=== PATIENT | female | born 1935 | race Caucasian/White ===

== ENCOUNTER 2017-08-04 02:39 | Inpatient (IN) | payer MEDICARE, OTHER ==
[~2017-08-04] VITALS: Ht 162.6 cm; Wt 70.5 kg
[2017-08-04] VITALS (8 sets, daily range): BP systolic 113–179; BP diastolic 56–77; PULSE 56–69; RESP 12–19; TEMP 98.1–98.4; O2SAT 94–99
--- NOTE | 2017-08-04 03:04 | PD ---
HPI Chief Complaint: Neuro Symptoms/ Deficits Time Seen by Provider: 02:53 Travel History International Travel<30 days: No Contact w/Intl Traveler<30days: No Traveled to known affect area: No History of Present Illness HPI 81-year-old female was brought in by EMS for head injury. Patient has history of dementia. Patient lives with her daughter at home. Patient's daughter states that her heart thumping noise in the bathroom tonight and found her mother having seizure on the floor of the bathroom. Patient daughter states that the generalized tonic-clonic seizure. Patient's daughter states that the seizure episode lasted about 2 minutes. Patient's daughter stated the patient bit her tongue. Patient's daughter states that patient normally has confusion however the confusion is worse tonight. Patient denies any problem now. Patient denies any headache. Patient denies any visual change. Patient denies any neck pain. Patient denies any chest pain or shortness of breath. Patient denies abdominal pain. Patient denies any focal weakness or numbness of the extremity. Patient was seen initially at emergency room in [place]. CT scan of the brain shows subarachnoid hemorrhage. Neurosurgeon [place] was contacted. Patient was transferred to [facility] to be admitted to neurosurgeon. [facility] Past Medical History Cancer: Yes Cerebrovascular Accident: Yes (strokes ) Influenza Vaccination: Yes ?: Not Past Surgical History Hysterectomy: Yes Social History Alcohol Use: No Tobacco Use: No Substance Use: No Allergies-Medications (Allergen,Severity, Reaction): Coded Allergies: codeine (Unverified Allergy, Severe, hives, 01/13/17) penicillin G (Unverified Allergy, Severe, 01/13/17) Review of Systems General / Constitutional: No: Fever Eyes: No: Visual changes HENT: No: Headaches Cardiovascular: No: Chest Pain or Discomfort Respiratory: No: Shortness of Breath Gastrointestinal: No: Abdominal Pain Genitourinary: No: Dysuria Musculoskeletal: No: Pain Skin: No Rash Neurologic: No: Weakness Psychiatric: No: Depression Endocrine: No: Polydipsia Hematologic/Lymphatic: No: Easy Bruising Physical Exam Narrative GENERAL: Well-nourished, well-developed patient. SKIN: Focused skin assessment warm/dry. HEAD: Normocephalic. Patient has mild abrasion and mouth subcu swelling right forehead. Patient has small abrasion to the tongue. EYES: No scleral icterus. No injection or drainage. Pupil 1.5 mm equal reactive. NECK: Supple, trachea midline. No JVD or lymphadenopathy. No neck tenderness on palpation. CARDIOVASCULAR: Regular rate and rhythm without murmurs, gallops, or rubs. RESPIRATORY: Breath sounds equal bilaterally. No accessory muscle use. GASTROINTESTINAL: Abdomen soft, non-tender, nondistended. MUSCULOSKELETAL: No cyanosis, or edema. BACK: Nontender without obvious deformity. No CVA tenderness. Neurologic exam: Patient is awake and answer questions and oriented to place and person. Patient moves all extremity well. No obvious focal neurological deficit. Data Data Last Documented VS Vital Signs Date Time Temp Pulse Resp B/P (MAP) Pulse Ox O2 Delivery O2 Flow Rate FiO2 08/04/17 02:48 98.4 64 17 133/62 (85) 97 Orders Orders Electrocardiogram (08/04/17 02:53) Complete Blood Count With Diff (08/04/17 02:53) Comprehensive Metabolic Panel (08/04/17 02:53) Prothrombin Time / Inr (Pt) (08/04/17 02:53) Act Partial Throm Time (Ptt) (08/04/17 02:53) Chest, Single Ap (08/04/17 02:53) Ct Brain W/O Iv Contrast(Rout) (08/04/17 02:53) Iv Access Insert/Monitor (08/04/17 02:53) Ecg Monitoring (08/04/17 02:53) Oximetry (08/04/17 02:53) Admit Order (Ed Use Only) (08/04/17 03:04) [facility] Medical Decision Making Medical Screen Exam Complete: Yes Emergency Medical Condition: Yes Differential Diagnosis Differential diagnosis including subcarinal hemorrhage, head injury, seizure. Narrative Course 81-year-old female with transfer from [facility] in [facility] for intracranial hemorrhage. Patient will be admitted to the neurosurgical service. EEG was ordered. Diagnosis Primary Impression: Subarachnoid hemorrhage Additional Impressions: Forehead abrasion Qualified Codes: S00.81XA - Abrasion of other part of head, initial encounter Seizure Admitting Information Admitting Physician Requests: Admit Fabio Blanco MD Aug 04, 2017 03:04
[2017-08-04] MEDS: SODIUM CHLOR 0.9% 1000 ML INJ 1,000 ML IV SCH ×2 (03:27→15:10)
--- NOTE | 2017-08-04 03:40 | RADRPT ---
EXAM DATE/TIME: 08/04/2017 03:10 [facility] COMPARISON: No previous studies available for comparison. INDICATIONS : Short of breath. MEDICAL HISTORY : None. SURGICAL HISTORY : None. ENCOUNTER: Initial ACUITY: 1 day PAIN SCORE: 0/10 LOCATION: Bilateral chest FINDINGS: Portable AP view of the chest demonstrates a normal-sized cardiac silhouette with calcification of th e aorta. Lungs are underinflated. No effusion, consolidation, or pneumothorax is visualized. Bones an d soft tissues demonstrate no acute finding. EKG lines overlie the patient. CONCLUSION: No acute cardiopulmonary abnormality is identified. Jj Hubbard MD on August 04, 2017 at 3:38 Board Certified Radiologist. This report was verified electronically.
--- NOTE | 2017-08-04 03:51 | RADRPT ---
EXAM DATE/TIME: 08/04/2017 03:02 [facility] COMPARISON: CT BRAIN W/O CONTRAST, December 14, 2015, 1:14. EXTERNAL COMPARISON : [facility], CT BRAIN August 03, 2017. This examination is not available for visual compar mehdi. By report, there are blood products in the left sylvian fissure INDICATIONS : Follow up hemorrhage. RADIATION DOSE: 39.32 CTDIvol (mGy) MEDICAL HISTORY : Cerebrovascular disease. SURGICAL HISTORY : Hysterectomy. ENCOUNTER: Initial ACUITY: 1 day PAIN SCALE: 0/10 LOCATION: cranial TECHNIQUE: Multiple contiguous axial images were obtained of the head. Using automated exposure control and adj ustment of the mA and/or kV according to patient size, radiation dose was kept as low as reasonably a chievable to obtain optimal diagnostic quality images. DICOM format image data is available electro nically for review and comparison. FINDINGS: CEREBRUM: There is moderate generalized cerebral atrophy. Ventricles are normal in size. There is severe calcif ication of the intracranial internal carotid arteries. No evidence of midline shift, mass lesion, he morrhage or acute infarction. No extra-axial fluid collections are seen. POSTERIOR FOSSA: The cerebellum and brainstem demonstrate no acute finding. The 4th ventricle is midline. The cerebe llopontine angle is unremarkable. EXTRACRANIAL: Visualized sinuses are clear. SKULL: There is hyperostosis frontalis. No evidence of skull fracture. CONCLUSION: No acute intracranial abnormality is identified. No acute blood products are seen. Jj Hubbard MD on August 04, 2017 at 3:46 Board Certified Radiologist. This report was verified electronically.
[2017-08-04 03:59] LABS: AUTOMATED NEUTROPHIL # 8.6 TH/MM3 (1.8-7.7); BASOPHIL % 0.3 % (0.0-2.0); EOSINOPHIL % 0.2 % (0.0-4.0); HEMATOCRIT 31.2 % (35.0-46.0); HEMOGLOBIN 10.9 GM/DL (11.6-15.3); LYMPH % 4.7 % (9.0-44.0); LYMPHOCYTE # 0.4 TH/MM3 (1.0-4.8); MEAN CELL VOLUME 96.8 FL (80.0-100.0); MEAN CORPUSCULAR HEMOGLOBIN 33.6 PG (27.0-34.0); MEAN CORPUSCULAR HGB CONC 34.7 % (32.0-36.0); MEAN PLATELET VOLUME 7.6 FL (7.0-11.0); MONO % 3.4 % (0.0-8.0); MONOCYTE # 0.3 TH/MM3 (0-0.9); NEUT % 91.4 % (16.0-70.0); PLATELET COUNT 172 TH/MM3 (150-450); RED BLOOD COUNT 3.23 MIL/MM3 (4.00-5.30); RED CELL DISTRIBUTION WIDTH 15.2 % (11.6-17.2); WHITE BLOOD COUNT 9.5 TH/MM3 (4.0-11.0)
[2017-08-04 04:14] LABS: PROTHROMBIN TIME - PATIENT 9.9 SEC (9.8-11.6)
[2017-08-04 04:19] LABS: ALKALINE PHOSPHATASE 49 U/L (45-117); TOTAL BILIRUBIN ADULT 0.1 MG/DL (0.2-1.0); TOTAL PROTEIN 6.3 GM/DL (6.4-8.2)
[2017-08-04 04:24] LABS: ALBUMIN 2.9 GM/DL (3.4-5.0); ALT (GPT) 21 U/L (10-53); AST (GOT) 26 U/L (15-37); BICARBONATE 29.8 MEQ/L (21.0-32.0); BLOOD UREA NITROGEN 26 MG/DL (7-18); CALCIUM 8.5 MG/DL (8.5-10.1); CHLORIDE 101 MEQ/L (98-107); CREATININE 0.78 MG/DL (0.50-1.00); GLOMERULAR FILTRATION RATE 71 ML/MIN (>89); GLUCOSE,RANDOM 108 MG/DL (74-106); SODIUM (NA) 134 MEQ/L (136-145)
[2017-08-04] MEDS ORDERED: HYDR25TA5 PO (06:32)
[2017-08-04] MEDS ORDERED: DONE10TA7 PO (06:32)
[2017-08-04] MEDS ORDERED: AGGR20025 PO (06:32)
[2017-08-04] MEDS ORDERED: SIMV20TA PO (06:32)
[2017-08-04] MEDS ORDERED: FOLI400T PO (06:32)
[2017-08-04] MEDS ORDERED: LEXA5TAB PO (06:32)
[2017-08-04 13:54] LABS: BACTERIA, URINE MANY /hpf; BILIRUBIN, URINE NEG (NEG); BLOOD, URINE SMALL (NEG); GLUCOSE,URINE NEG (NEG); KETONE, URINE NEG (NEG); NITRITE,URINE POS (NEG); PH, URINE 6.5 (5.0-8.5); SQUAMOUS EPITHELIAL CELL URINE 1 /hpf (0-5); TRANSITIONAL EPI CELLS, URINE <1 /hpf; URINE COLOR YELLOW (YELLW/STRAW); URINE LEUKOCYTE ESTERASE SMALL (NEG)
[2017-08-04] MEDS ORDERED: FOSPHENYTOIN SODIUM 500 MG PE/10 ML VIAL IV ONE (15:15)
--- NOTE | 2017-08-04 15:34 | PD.CONS ---
History of Present Illness Service Neurology Consult Requested By nsx Reason for Consult sz Primary Care Physician Parth Garcia MD History of Present Illness 81-year-old female was brought in by EMS for head injury, transferred from outside hospital for possible ICH. Daughter at bedside gives hx. pt has moderate dementia and lives with her daughter. At baseline is oriented to herself and family not to date. can do some basic adl's independently. progressive memory loss over the past few years. has been more confused lately. last night, daughter heard a thump,. went to see the pt and noted her on floor shaking. foaming, confused. called evac. pt does not recollect any of this. no previous occurrence. 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 has been on aricept for over 6 months. seen in our office. no change in dose. no new meds. no recent illness. Patient denies any focal weakness or numbness of the extremity. CT scan of the brain shows subarachnoid hemorrhage. repeat ct brain at [facility] is read as normal. currently feels well. no head, neck pain, no focal weakness. no cp, dyspnea. PFSH Past Medical History Cancer: Yes Cerebrovascular Accident: Yes (strokes ) Influenza Vaccination: Yes ?: Not Past Surgical History Hysterectomy: Yes Social History Alcohol Use: No Tobacco Use: No Substance Use: No Allergies-Medications (Allergen,Severity, Reaction): Coded Allergies: codeine (Unverified Allergy, Severe, hives, 01/13/17) penicillin G (Unverified Allergy, Severe, 01/13/17) Review of Systems as above and admit hp Review of Systems All other ROS: ROS reviewed as documented in chart Past Family Social History Allergies: Coded Allergies: codeine (Unverified Allergy, Severe, hives, 01/13/17) penicillin G (Unverified Allergy, Severe, 01/13/17) Active Ordered Medications Current Medications Medications (Trade) Dose Ordered Sig/Kimberly Route Start Time Stop Time Status Last Admin Sodium Chloride 1,000 ml @ 84 mls/hr [id number] IV 08/04/17 03:15 08/04/17 03:27 Exam I&O / VS 08/04/17 08/04/17 08/05/17 15:00 23:00 07:00 Output Total 300 ml Balance -300 ml Output Urine Total 300 ml # Voids 1 Vital Signs Date Time Temp Pulse Resp B/P (MAP) Pulse Ox O2 Delivery O2 Flow Rate FiO2 08/04/17 14:20 60 18 155/72 (99) 99 Room Air 08/04/17 10:41 98.3 56 16 144/56 (85) 96 Room Air 08/04/17 07:20 98.3 56 18 172/72 (105) 94 Room Air 08/04/17 02:55 19 97 Room Air 08/04/17 02:48 98.4 64 17 133/62 (85) 97 General: Alert and Oriented, No acute distress Eye: EOMI Respiratory: Non-labored respirations Cardiology: Normal rate Musculoskeletal: ROM Neurologic: Alert, Oriented, Normal sensory, Normal motor, No focal defects, CN II-XII intact, Normal DTR's Psychiatric: Cooperative, Appropriate mood & affect Exam Comments alert, ox 2. not to date. impaired short-term memory, recognizes daughter. follows, articulate. eomi, ou surgical cataract changes, vff grossly full, face sym, mild tongue lac on rt, weathers to gravity, neck supple, no clonus, planterflexor Review/Management Diagnosis/Plan: (1) Seizure ICD Codes: R56.9 - Unspecified convulsions Status: Acute Plan: probably related to alz dementia about 7% incidence recs eeg dilantin f/u imaging f/u urine cx although likely asymptomatic d/w pt/daughter case management- no driving/fall precautions (2) Subarachnoid hemorrhage ICD Codes: I60.9 - Nontraumatic subarachnoid hemorrhage, unspecified Status: Acute Plan: repeat ct brain negative ? rt extra-axial fluid/mass f/u mri/mra brain (3) Forehead abrasion ICD Codes: S00.81XA - Abrasion of other part of head, initial encounter Status: Acute (4) Dementia in Alzheimer's disease ICD Codes: G30.9 - Alzheimer's disease, unspecified; F02.80 - Dementia in other diseases classified elsewhere without behavioral disturbance Status: Chronic Problem Qualifiers (1) Forehead abrasion: Qualified Codes: S00.81XA - Abrasion of other part of head, initial encounter Pablo Frazier MD Aug 04, 2017 15:34
[2017-08-04] MEDS ORDERED: FOSPHENYTOIN INJ 1,000 MGPE in SODIUM CHLORIDE 0.9% INJ 50 ML IV ONE (16:00)
--- NOTE | 2017-08-04 17:03 | MG ---
cc: Gustavo Power MD EEG NUMBER: [id number] INTRODUCTION: An 81-year-old woman, head injury, CVA, cancer, seizure, Keppra. DESCRIPTION: Diffuse alpha and beta rhythms are seen, which are synchronous and symmetric. A lot of mini blink artifact is noted. Posterior rhythm of 8 Hz, 15 microvolt is seen, which is synchronous and symmetric. No hemisphere asymmetry is noted. No epileptiform or seizure activity is seen. Hyperventilation is not performed. Photic stimulation is performed without significant posterior driving. IMPRESSION: A normal awake electroencephalogram. No evidence for a focal or diffuse abnormality. MD NATHANAEL Tellez/ORESTES , 04:38 PM , 05:01 PM
--- NOTE | 2017-08-04 19:57 | HHI.HP ---
[facility] Service Neurosurgery Primary Care Physician Parth Garcia MD Chief Complaint: Fell with seizure History of Present Illness 81-year-old female transferred to [facility] emergency room From [facility] where she presented after a unwitnessed fall and new onset seizure activity. The patient's daughter accompanies her in the emergency room. She states that the patient lives with her at home. Ms. Yeager does have a history of Alzheimer's dementia diagnosed within the past year and followed by neurology. Her daughter states that in the past month, she has noted significant progression of the patient's mental status changes. 2 weeks ago the patient was taken to [facility] after she became much more confused, could not walk. She has improved somewhat since then, ambulating independent over the past week. However last evening her daughter heard a "thump" and went to the next room to find her mother lying on the floor. Within a few seconds she noted diffuse seizure shaking, some foaming at the mouth, followed by a period of lethargy and confusion. She was taken initially to [facility] Emergency room where a CT scan revealed possible mild subarachnoid hemorrhage. The patient presently has no complaint of significant headache, dizziness. No neck or back pain. Review of Systems Constitutional: COMPLAINS OF: Fatigue, DENIES: Fever, Dizziness Eyes: DENIES: Blurred vision, Diplopia Ears, nose, mouth, throat: COMPLAINS OF: Hearing loss, DENIES: Vertigo Respiratory: DENIES: Shortness of breath Cardiovascular: DENIES: Chest pain Gastrointestinal: DENIES: Abdominal pain, Nausea Genitourinary: DENIES: Urinary incontinence Musculoskeletal: DENIES: Joint pain Hematologic/lymphatic: DENIES: Bruising Neurologic: COMPLAINS OF: Abnormal gait, Headache Psychiatric: COMPLAINS OF: Confusion Past Family Social History Allergies: Coded Allergies: codeine (Unverified Allergy, Severe, hives, 01/13/17) penicillin G (Unverified Allergy, Severe, 01/13/17) Past Medical History Alzheimer's Previous CVA in the 1970s Left bundle branch block Possible arthritis No significant cardiac pulmonary or gastrointestinal disease Past Surgical History Hysterectomy Thyroidectomy for thyroid cancer Reported Medications Reported Meds & Active Scripts Active Reported Simvastatin 20 Mg Tab 20 Mg PO DAILY Aggrenox (Dipyridamole/Aspirin) 200-25 Mg Cap 1 Cap PO BID Donepezil 10 Mg Tab 10 Mg PO HS Lexapro (Escitalopram Oxalate) 5 Mg Tab 5 Mg PO DAILY Hydrochlorothiazide 25 Mg Tab 25 Mg PO DAILY Folic Acid 0.4 Mg Tab 1 Mg PO DAILY Family History Positive bladder cancer in the patient's mother. Multiple family members with CVA. Multiple family members with Alzheimer's dementia Social History Lives with her daughter. Stopped smoking cigarettes 20 years ago. No significant alcohol use Physical Exam Vital Signs Vital Signs Date Time Temp Pulse Resp B/P (MAP) Pulse Ox O2 Delivery O2 Flow Rate FiO2 08/04/17 16:00 98.1 59 18 179/77 (111) 94 08/04/17 14:20 60 18 155/72 (99) 99 Room Air 08/04/17 10:41 98.3 56 16 144/56 (85) 96 Room Air 08/04/17 07:20 98.3 56 18 172/72 (105) 94 Room Air 08/04/17 02:55 19 97 Room Air 08/04/17 02:48 98.4 64 17 133/62 (85) 97 Physical Exam GENERAL: This is a well-nourished, well-developed patient, no apparent distress. SKIN: No abrasions, contusion, rash noted. Skin warm and dry. HEAD: Atraumatic. Normocephalic. No temporal or scalp tenderness. EYES: Sclerae are clear and nonicteric ENT: No facial edema or ecchymosis. No periorbital edema. No CSF otorrhea or rhinorrhea. No palpable facial fracture or deformity. NECK: Trachea midline. No cervical spine tenderness. CARDIOVASCULAR: Regular rate and rhythm without murmurs, gallops, or rubs. RESPIRATORY: Clear to auscultation. Breath sounds equal bilaterally. No wheezes , rales, or rhonchi. GASTROINTESTINAL: Abdomen soft, non-tender, nondistended. No hepato-splenomegaly , or palpable masses. No guarding. MUSCULOSKELETAL: Extremities without cyanosis, or edema. No joint tenderness, or edema noted. No calf tenderness. Dorsalis pedis pulses 2+ bilateral NEUROLOGICAL: Awake and alert Oriented to person, hospital. Not to month or date. Speech is slow but clear Conversant and appropriate Follow simple commands well Answers questions appropriately At least mild diminished judgment and insight Recent and remote memory are moderately impaired. She converses relatively well in regards to her medical conditions in the past and past medical care. No evidence of anxiety or depression Pupils are equal and reactive to accommodation. Extra-ocular movements, visual peña to confrontation, facial sensorimotor, tongue, palate, sternocleidomastoid testing, hearing to finger rub testing on the right, and bilateral shoulder shrug are all intact. Diminished hearing on the left to finger rub Sensation is intact to light touch in all extremities Strength normal major flexion and extension groups all extremities Iliana's absent bilaterally No ankle clonus Plantar responses absent bilateral Fine motor movements intact upper extremities Laboratory Laboratory Tests Test 08/04/17 03:20 08/04/17 13:30 White Blood Count 9.5 Red Blood Count 3.23 Hemoglobin 10.9 Hematocrit 31.2 Mean Corpuscular Volume 96.8 Mean Corpuscular Hemoglobin 33.6 Mean Corpuscular Hemoglobin Concent 34.7 Red Cell Distribution Width 15.2 Platelet Count 172 Mean Platelet Volume 7.6 Neutrophils (%) (Auto) 91.4 Lymphocytes (%) (Auto) 4.7 Monocytes (%) (Auto) 3.4 Eosinophils (%) (Auto) 0.2 Basophils (%) (Auto) 0.3 Neutrophils # (Auto) 8.6 Lymphocytes # (Auto) 0.4 Monocytes # (Auto) 0.3 Eosinophils # (Auto) 0.0 Basophils # (Auto) 0.0 CBC Comment DIFF FINAL Differential Comment Prothrombin Time 9.9 Prothromb Time International Ratio 1.0 Activated Partial Thromboplast Time 19.9 Blood Urea Nitrogen 26 Creatinine 0.78 Random Glucose 108 Total Protein 6.3 Albumin 2.9 Calcium Level 8.5 Alkaline Phosphatase 49 Aspartate Amino Transf (AST/SGOT) 26 Alanine Aminotransferase (ALT/SGPT) 21 Total Bilirubin 0.1 Sodium Level 134 Potassium Level 4.1 Chloride Level 101 Carbon Dioxide Level 29.8 Anion Gap 3 Estimat Glomerular Filtration Rate 71 Phenytoin (Dilantin) Level 0.8 Urine Color YELLOW Urine Turbidity HAZY Urine pH 6.5 Urine Specific [place] 1.017 Urine Protein TRACE Urine Glucose (UA) NEG Urine Ketones NEG Urine Occult Blood SMALL Urine Nitrite POS Urine Bilirubin NEG Urine Urobilinogen LESS THAN 2.0 Urine Leukocyte Esterase SMALL Urine RBC 1 Urine WBC 8 Urine Squamous Epithelial Cells 1 Urine Transitional Epithelial Cells <1 Urine Bacteria MANY Microscopic Urinalysis Comment CULTURE INDICATED Date/Time Source Procedure Growth Status 08/04/17 13:30 Urine Clean Catch Urine Culture Pending Received Result Diagram: 08/04/17 0320 08/04/17 0320 Imaging 08/04/2017 CT scan head images reviewed. There appears to be possibly a little calcification along the left petroclival ligament region but no definite hemorrhage. Moderate diffuse atrophy and corresponding mild ventriculomegaly appropriate for age. Head CT 08/04/17252 Signed Impressions: Service Date/Time: Friday, August 04, 2017 03:02 - CONCLUSION: No acute intracranial abnormality is identified. No acute blood products are seen. Jj Hubbard MD Chest X-Ray 08/04/17252 Signed Impressions: Service Date/Time: Friday, August 04, 2017 03:10 - CONCLUSION: No acute cardiopulmonary abnormality is identified. MD Ying Flanagani VTE Risk Assessment Caprini VTE Risk Assessment: No/Low Risk (score <= 1) Caprini Risk Assessment Model Point Value = 1 Point Value = 2 Point Value = 3 Point Value = 5 Age 41-60 Minor surgery BMI > 25 kg/m2 Swollen legs Varicose veins or History of unexplained or recurrent spontaneous Oral contraceptives or hormone replacement Sepsis (< 1 month) Serious lung disease, including pneumonia (< 1 month) Abnormal pulmonary function Acute myocardial infarction Congestive heart failure (< 1 month) History of inflammatory bowel disease Medical patient at bed rest Age 61-74 Arthroscopic surgery Major open surgery (> 45 min) Laparoscopic surgery (> 45 min) Malignancy Confined to bed (> 72 hours) Immobilizing plaster cast Central venous access Age >= 75 History of VTE Family history of VTE Factor V Leiden Prothrombin [id number] Lupus anticoagulant Anticardiolipin antibodies Elevated serum homocysteine Heparin-induced thrombocytopenia Other congenital or acquired thrombophilia Stroke (< 1 month) Elective arthroplasty Hip, pelvis, or leg fracture Acute spinal cord injury (< 1 month) Prophylaxis Regimen Total Risk Factor Score Risk Level Prophylaxis Regimen 0-1 Low Early ambulation 2 Moderate Order ONE of the following: *Sequential Compression Device (SCD) *Heparin 5000 units SQ BID 3-4 Higher Order ONE of the following medications: *Heparin 5000 units SQ TID *Enoxaparin/Lovenox 40 mg SQ daily (WT < 150 kg, CrCl > 30 mL/min) *Enoxaparin/Lovenox 30 mg SQ daily (WT < 150 kg, CrCl > 10-29 mL/min) *Enoxaparin/Lovenox 30 mg SQ BID (WT < 150 kg, CrCl > 30 mL/min) AND/OR *Sequential Compression Device (SCD) 5 or more Highest Order ONE of the following medications: *Heparin 5000 units SQ TID (Preferred with Epidurals) *Enoxaparin/Lovenox 40 mg SQ daily (WT < 150 kg, CrCl > 30 mL/min) *Enoxaparin/Lovenox 30 mg SQ daily (WT < 150 kg, CrCl > 10-29 mL/min) *Enoxaparin/Lovenox 30 mg SQ BID (WT < 150 kg, CrCl > 30 mL/min) AND *Sequential Compression Device (SCD) Assessment and Plan Assessment and Plan Impression: 1. New onset seizure in patient with history of Alzheimer's disease. 2. Follow-up CT scan head negative. No definite indication of spontaneous or traumatic hemorrhage. Plan: Neurology evaluation. Dilantin initiated per neurology. Admit for close observation and neurologic checks. MRI and MRA brain to further rule out acute CVA, vascular abnormality, subarachnoid hemorrhage Advance diet and activity as tolerated Physical therapy Continue present medications except for antiplatelet agents. Mckay Law MD Aug 04, 2017 19:57
[2017-08-04] MEDS: SULFAMETHOXAZOLE-TRIMETHOPRIM DS 800-160 MG TAB PO SCH (21:11)
[2017-08-04] MEDS: PHENYTOIN SODIUM 100 MG CAP PO SCH (21:11)
--- NOTE | 2017-08-04 23:01 | RADRPT ---
EXAM DATE/TIME: 08/04/2017 22:44 [facility] COMPARISON: CT BRAIN W/O CONTRAST, August 04, 2017, 3:02. INDICATIONS : Trauma, fall. Bruising to right side of head. RADIATION DOSE: 42.24 CTDIvol (mGy) MEDICAL HISTORY : Stroke. Subarachnoid hemorrhage. SURGICAL HISTORY : None. ENCOUNTER: Initial ACUITY: 1 day PAIN SCALE: 0/10 LOCATION: cranial TECHNIQUE: Multiple contiguous axial images were obtained of the head. Using automated exposure control and adj ustment of the mA and/or kV according to patient size, radiation dose was kept as low as reasonably a chievable to obtain optimal diagnostic quality images. DICOM format image data is available electro nically for review and comparison. FINDINGS: CEREBRUM: The ventricles, sulci, and basal cisterns are prominent, characteristic of moderate central and corti violeta atrophy, stable from prior.. No evidence of midline shift, mass lesion, hemorrhage or acute infa rction. No extra-axial fluid collections are seen. POSTERIOR FOSSA: The cerebellum and brainstem are intact. The 4th ventricle is midline. The cerebellopontine angle i s unremarkable. EXTRACRANIAL: The visualized portion of the orbits is intact. SKULL: Hyperostosis frontalis. No evidence of skull fracture. CONCLUSION: Stable moderate severity atrophy. No acute findings. No evidence of acute blood products. Desmond Alfredo MD on August 04, 2017 at 22:57 Board Certified Radiologist. This report was verified electronically.
[2017-08-05] VITALS (8 sets, daily range): BP systolic 110–181; BP diastolic 55–87; PULSE 60–75; RESP 18–20; TEMP 97.2–98.5; O2SAT 95–100
[2017-08-05] MEDS: SODIUM CHLOR 0.9% 1000 ML INJ 1,000 ML IV SCH ×2 (04:14→12:59)
[2017-08-05] MEDS: PHENYTOIN SODIUM 100 MG CAP PO SCH ×3 (06:07→21:16)
[2017-08-05] MEDS: ESCITALOPRAM OXALATE 10 MG TAB PO SCH (09:03)
[2017-08-05] MEDS: FOLIC ACID 1 MG TAB PO SCH (09:04)
[2017-08-05] MEDS: PRAVASTATIN SOD 40 MG TAB PO SCH (09:04)
[2017-08-05] MEDS: SULFAMETHOXAZOLE-TRIMETHOPRIM DS 800-160 MG TAB PO SCH ×2 (09:04→20:41)
[2017-08-05] MEDS: HYDROCHLOROTHIAZIDE 25 MG TAB PO SCH (09:04)
--- NOTE | 2017-08-05 09:40 | HHI.PR ---
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 rt extra-axial fluid/mass f/u mri/mra brain (3) Forehead abrasion ICD Codes: S00.81XA - Abrasion of other part of head, initial encounter Status: Acute (4) Dementia in Alzheimer's disease ICD Codes: G30.9 - Alzheimer's disease, unspecified; F02.80 - Dementia in other diseases classified elsewhere without behavioral disturbance Status: Chronic Subjective Subjective Comments was restless, fell out of bed last night repeat ct brain stable no problems this am; had breakfast No headache No chest pain No dyspnea Active Medications Current Medications Medications (Trade) Dose Ordered Sig/Kimberly Route Start Time Stop Time Status Last Admin Sodium Chloride 1,000 ml @ 84 mls/hr [id number] IV 08/04/17 03:15 08/05/17 04:14 (Dilantin) 100 mg Q8HR PO 08/04/17 22:00 08/05/17 06:07 (Bactrim Ds 800-160 Mg) 1 tab Q12HR PO 08/04/17 21:00 08/07/17 09:01 08/05/17 09:04 (Aricept) 10 mg HS PO 08/05/17 21:00 (Lexapro) 5 mg DAILY PO 08/05/17 09:00 08/05/17 09:03 (Folate) 1 mg DAILY PO 08/05/17 09:00 08/05/17 09:04 (Hydrodiuril) 25 mg DAILY PO 08/05/17 09:00 08/05/17 09:04 (Pravachol) 40 mg DAILY PO 08/05/17 09:00 08/05/17 09:04 Allergies Allergies Coded Allergies codeine (Unverified Allergy, Severe, hives, 01/13/17) penicillin G (Unverified Allergy, Severe, 01/13/17) Review of Systems All other ROS: ROS reviewed as documented in chart Exam I&O / VS Vital Signs Date Time Temp Pulse Resp B/P (MAP) Pulse Ox O2 Delivery O2 Flow Rate FiO2 08/05/17 08:50 66 08/05/17 07:47 98.2 71 20 181/87 (118) 97 08/05/17 06:01 98.0 62 20 156/70 (98) 96 08/05/17 01:43 97.4 66 19 110/55 (73) 95 08/04/17 22:00 69 12 113/64 (80) 95 08/04/17 21:56 98.4 64 19 131/62 (85) 95 08/04/17 16:00 98.1 59 18 179/77 (111) 94 08/04/17 14:20 60 18 155/72 (99) 99 Room Air 08/04/17 10:41 98.3 56 16 144/56 (85) 96 Room Air General: Alert and Oriented, No acute distress Eye: EOMI Respiratory: Non-labored respirations Cardiology: Normal rate Musculoskeletal: ROM Neurologic: Alert, Oriented, Normal sensory, Normal motor, Normal DTR's Psychiatric: Cooperative, Appropriate mood & affect Exam Comments alert, ox 2. not to date.calm, follows, articulate. eomi, ou surgical cataract changes, vff grossly full, face sym, mild tongue lac on rt, weathers to gravity, neck supple, no clonus, planterflexor Objective Micro and Labs Laboratory Tests Test 08/04/17 13:30 08/05/17 06:00 Urine Color YELLOW Urine Turbidity HAZY Urine pH 6.5 Urine Specific [place] 1.017 Urine Protein TRACE Urine Glucose (UA) NEG Urine Ketones NEG Urine Occult Blood SMALL Urine Nitrite POS Urine Bilirubin NEG Urine Urobilinogen LESS THAN 2.0 Urine Leukocyte Esterase SMALL Urine RBC 1 Urine WBC 8 Urine Squamous Epithelial Cells 1 Urine Transitional Epithelial Cells <1 Urine Bacteria MANY Microscopic Urinalysis Comment CULTURE INDICATED Phenytoin (Dilantin) Level 15.3 Date/Time Source Procedure Growth Status 08/04/17 13:30 Urine Clean Catch Urine Culture Pending Received Problem Qualifiers (1) Forehead abrasion: Qualified Codes: S00.81XA - Abrasion of other part of head, initial encounter Pablo Frazier MD Aug 05, 2017 09:40
--- NOTE | 2017-08-05 13:36 | RADRPT ---
EXAM DATE/TIME: 08/05/2017 12:04 [facility] COMPARISON: CT BRAIN W/O CONTRAST, August 04, 2017, 22:44. INDICATIONS : Altered mental status. MEDICAL HISTORY : Dementia. Stroke SURGICAL HISTORY : Hysterectomy. Thyroidectomy. ENCOUNTER: Initial ACUITY: 2 day PAIN SCORE: 0/10 LOCATION: head TECHNIQUE: Multiplanar, multisequence MRI of the brain was performed without contrast. FINDINGS: CEREBRUM: Atrophy. The ventricles are normal for age. No evidence of midline shift, mass lesion, hemorrhage or acute infarction. No extraaxial fluid collections are seen. The pituitary gland and suprasellar ci manzano are normal in configuration. WHITE MATTER: A few small scattered foci of periventricular high T2 signal abnormality involving both cerebral rajendra spheres. POSTERIOR FOSSA: The cerebellum and brainstem are intact. The 4th ventricle is midline. The cerebellopontine angle is unremarkable. The cerebellar tonsils are normal in position. DIFFUSION IMAGING: No focal areas of restricted diffusion are seen. No evidence of acute infarction. EXTRACRANIAL: The visualized portions of the orbits and paranasal sinuses are unremarkable. CONCLUSION: 1. No acute intracranial abnormality. 2. Atrophy. 3. Mild chronic small vessel ischemic change. Desmond Osborn Jr., MD on August 05, 2017 at 13:26 Board Certified Radiologist. This report was verified electronically.
--- NOTE | 2017-08-05 13:41 | RADRPT ---
EXAM DATE/TIME: 08/05/2017 12:04 [facility] COMPARISON: No previous studies available for comparison. INDICATIONS : Altered mental status. MEDICAL HISTORY : Dementia. Stroke SURGICAL HISTORY : Hysterectomy. Thyroidectomy. ENCOUNTER: Initial ACUITY: 2 day PAIN SCORE: 0/10 LOCATION: head Please note a normal MRA of the brain does not entirely exclude the possibility of a small aneurysm, nor the possibility of distal intracranial vessel disease. TECHNIQUE: 3D time of flight MRA was performed. Source images, multiplanar STS MIP, and 3D volume MIP reconstru ctions were reviewed. FINDINGS: Motion degraded exam. The major intracranial vessels are well-seen. The poor visualization of the pro ximal M2 branches bilaterally is felt to be secondary to the motion. There is no evidence for aneurys m, vessel truncation or stenosis, and no evidence for vascular malformation. CONCLUSION: 1. Slightly limited by motion artifact. 2. No acute abnormality. Desmond Osborn Jr., MD on August 05, 2017 at 13:35 Board Certified Radiologist. This report was verified electronically.
--- NOTE | 2017-08-05 14:26 | HHI.NSPN ---
(Gideon Reddy) History Chief Complaint: No complaints. (Gideon Reddy) Interval History 08/04: 81-year-old female transferred to [facility] emergency room From [facility] where she presented after a unwitnessed fall and new onset seizure activity. The patient's daughter accompanies her in the emergency room. She states that the patient lives with her at home. Ms. Yeager does have a history of Alzheimer's dementia diagnosed within the past year and followed by neurology. Her daughter states that in the past month, she has noted significant progression of the patient's mental status changes. 2 weeks ago the patient was taken to [facility] after she became much more confused, could not walk. She has improved somewhat since then, ambulating independent over the past week. However last evening her daughter heard a "thump" and went to the next room to find her mother lying on the floor. Within a few seconds she noted diffuse seizure shaking, some foaming at the mouth, followed by a period of lethargy and confusion. She was taken initially to [facility] Emergency room where a CT scan revealed possible mild subarachnoid hemorrhage. A CT angiogram was performed, reported negative for aneurysm. The patient presently has no complaint of significant headache, dizziness. No neck or back pain. 08/05: The patient is asleep when seen but does awaken to voice. She is drowsy but does interact. She denies any headache, dizziness or visual problems. She denies any pain, numbness or tingling to the extremities or any back or neck pain. She is disoriented as to time and place. No evident sensorimotor deficits noted upon examination. The patient did have her MRI/MRI brain/head earlier which were unremarkable. (Gideon Reddy) Exam Results 08/03/17 08/03/17 08/04/17 08/04/17 08/05/17 08/05/17 06:00 18:00 06:00 18:00 06:00 18:00 Output Total 300 ml Balance -300 ml Output Urine Total 300 ml # Voids 1 5 2 Vital Signs Date Time Temp Pulse Resp B/P (MAP) Pulse Ox O2 Delivery O2 Flow Rate FiO2 08/05/17 11:46 97.2 60 20 124/62 (82) 96 08/05/17 08:50 66 08/05/17 07:47 98.2 71 20 181/87 (118) 97 08/05/17 06:01 98.0 62 20 156/70 (98) 96 08/05/17 01:43 97.4 66 19 110/55 (73) 95 08/04/17 22:00 69 12 113/64 (80) 95 08/04/17 21:56 98.4 64 19 131/62 (85) 95 08/04/17 16:00 98.1 59 18 179/77 (111) 94 08/04/17 14:20 60 18 155/72 (99) 99 Room Air 08/04/17 10:41 98.3 56 16 144/56 (85) 96 Room Air 08/04/17 07:20 98.3 56 18 172/72 (105) 94 Room Air 08/04/17 02:55 19 97 Room Air 08/04/17 02:48 98.4 64 17 133/62 (85) 97 (Gideon Reddy) Physical Examination GENERAL: Asleep but awakens to voice. Drowsy but readily interacts. Affect essentially normal. No apparent distress. HEENT: Normocephalic. Right lateral forehead abrasion NTTP. PERRLA 3 mm brisk, EOMI. MMM & pink, tongue midline to protrusion. MUSCULOSKELETAL: BLOOM spontaneously w/o difficulty. Extremities NTTP. No evident clubbing or deformity. Multiple ecchymotic areas to the extremities of indeterminate ages. NEUROLOGICAL: Asleep but awakens to voice. Drowsy afterward and drifts off to sleep a couple times. [place] to self only. Thought she was may be in a SNF. Says she doesn't keep up on things like the year or month. Speech clear and slow. Follows simple commands w/o difficulty. CN II through XII appear grossly intact. PERRLA 3 mm brisk, EOMI. Tongue midline to protrusion. Sensation intact to light touch to all extremities. Motor strength is strong to all major flexion & extension muscle groups. (Gideon Reddy) Lab, Micro, Other Results Recent Impressions Head Magnetic Resonance Angiography 08/05/17 0000 Signed Impressions: Service Date/Time: Saturday, August 05, 2017 12:04 - CONCLUSION: 1. Slightly limited by motion artifact. 2. No acute abnormality. Desmond Osborn Jr., MD Brain MRI 08/05/17 Signed Impressions: Service Date/Time: Saturday, August 05, 2017 12:04 - CONCLUSION: 1. No acute intracranial abnormality. 2. Atrophy. 3. Mild chronic small vessel ischemic change. Desmond Osborn Jr., MD Head CT 08/04/17252 Signed Impressions: Service Date/Time: Friday, August 04, 2017 03:02 - CONCLUSION: No acute intracranial abnormality is identified. No acute blood products are seen. Jj Hubbard MD Chest X-Ray 08/04/17252 Signed Impressions: Service Date/Time: Friday, August 04, 2017 03:10 - CONCLUSION: No acute cardiopulmonary abnormality is identified. Jj Hubbard MD Head CT 08/04/17 Signed Impressions: Service Date/Time: Friday, August 04, 2017 22:44 - CONCLUSION: Stable moderate severity atrophy. No acute findings. No evidence of acute blood products. Desmond Alfredo MD Laboratory Tests Test 08/04/17 03:20 08/04/17 13:30 08/05/17 06:00 White Blood Count 9.5 TH/MM3 Red Blood Count 3.23 MIL/MM3 Hemoglobin 10.9 GM/DL Hematocrit 31.2 % Mean Corpuscular Volume 96.8 FL Mean Corpuscular Hemoglobin 33.6 PG Mean Corpuscular Hemoglobin Concent 34.7 % Red Cell Distribution Width 15.2 % Platelet Count 172 TH/MM3 Mean Platelet Volume 7.6 FL Neutrophils (%) (Auto) 91.4 % Lymphocytes (%) (Auto) 4.7 % Monocytes (%) (Auto) 3.4 % Eosinophils (%) (Auto) 0.2 % Basophils (%) (Auto) 0.3 % Neutrophils # (Auto) 8.6 TH/MM3 Lymphocytes # (Auto) 0.4 TH/MM3 Monocytes # (Auto) 0.3 TH/MM3 Eosinophils # (Auto) 0.0 TH/MM3 Basophils # (Auto) 0.0 TH/MM3 CBC Comment DIFF FINAL Differential Comment Prothrombin Time 9.9 SEC Prothromb Time International Ratio 1.0 RATIO Activated Partial Thromboplast Time 19.9 SEC Blood Urea Nitrogen 26 MG/DL Creatinine 0.78 MG/DL Random Glucose 108 MG/DL Total Protein 6.3 GM/DL Albumin 2.9 GM/DL Calcium Level 8.5 MG/DL Alkaline Phosphatase 49 U/L Aspartate Amino Transf (AST/SGOT) 26 U/L Alanine Aminotransferase (ALT/SGPT) 21 U/L Total Bilirubin 0.1 MG/DL Sodium Level 134 MEQ/L Potassium Level 4.1 MEQ/L Chloride Level 101 MEQ/L Carbon Dioxide Level 29.8 MEQ/L Anion Gap 3 MEQ/L Estimat Glomerular Filtration Rate 71 ML/MIN Phenytoin (Dilantin) Level 0.8 MCG/ML 15.3 MCG/ML Urine Color YELLOW Urine Turbidity HAZY Urine pH 6.5 Urine Specific [place] 1.017 Urine Protein TRACE mg/dL Urine Glucose (UA) NEG mg/dL Urine Ketones NEG mg/dL Urine Occult Blood SMALL Urine Nitrite POS Urine Bilirubin NEG Urine Urobilinogen LESS THAN 2.0 MG/DL Urine Leukocyte Esterase SMALL Urine RBC 1 /hpf Urine WBC 8 /hpf Urine Squamous Epithelial Cells 1 /hpf Urine Transitional Epithelial Cells <1 /hpf Urine Bacteria MANY /hpf Microscopic Urinalysis Comment CULTURE INDICATED (Gideon Reddy) Medical Decision Making Impression and Plan Impression: 1. New onset seizure in patient with history of Alzheimer's disease. 2. Follow-up CT scan head negative. No definite indication of spontaneous or traumatic hemorrhage. Patient is doing well and remains neurologically intact for self. Intermittent hypertension. Urine culture w/Gram negative rods on preliminary. CT brain was unremarkable for any intracranial abnormality. EEG w/o evidence for any focal or diffuse abnormality. MRI/MRA brain/head w/o any acute intracranial abnormality. Atrophy and mild chronic small vessel ischemic changes. Plan: Neuro checks. Stat CT brain for any decline in neuro status. Neurology following. Antiepileptics per Neurology. Diet as tolerated. Mobilise patient w/assistance. Physical Therapy eval & tx. Continue present medications except for antiplatelet agents. (Gideon Reddy) Attending Statement The exam, history, and the medical decision-making described in the above note were completed with the assistance of the mid-level provider. I reviewed and agree with the findings presented. I attest that I had a [id number] encounter with the patient on the same day, and personally performed and documented my assessment and findings in the medical record. Patient remains awake and alert on my examination of 08/05/2017. Mild confusion, memory loss. She fell out of bed last night. CT scan head negative. MRI/MRA images and report reviewed-negative. Physical therapy assessment-fall risk Continuing anticonvulsants per neurology. May benefit from inpatient rehabilitation. Contact guard-standby assist with therapy today. (Mckay Law MD) Gideon Reddy Aug 05, 2017 14:26 Mckay Law MD Aug 05, 2017 20:40
[2017-08-05] MEDS: DONEPEZIL HCL 5 MG TAB PO SCH (20:42)
[2017-08-06] VITALS (9 sets, daily range): BP systolic 134–170; BP diastolic 68–81; PULSE 63–79; RESP 18–20; TEMP 97.6–98.7; O2SAT 95–99
[2017-08-06] MEDS: SODIUM CHLOR 0.9% 1000 ML INJ 1,000 ML IV SCH ×2 (02:55→13:24)
[2017-08-06] MEDS: PHENYTOIN SODIUM 100 MG CAP PO SCH ×3 (05:40→20:40)
[2017-08-06] MEDS: SULFAMETHOXAZOLE-TRIMETHOPRIM DS 800-160 MG TAB PO SCH ×2 (08:11→20:42)
[2017-08-06] MEDS: FOLIC ACID 1 MG TAB PO SCH (08:11)
[2017-08-06] MEDS: PRAVASTATIN SOD 40 MG TAB PO SCH (08:11)
[2017-08-06] MEDS: ESCITALOPRAM OXALATE 10 MG TAB PO SCH (08:11)
[2017-08-06] MEDS: HYDROCHLOROTHIAZIDE 25 MG TAB PO SCH (08:11)
[2017-08-06] MEDS: QUEtiapine FUMARATE 25 MG TAB PO PRN (20:39)
[2017-08-06] MEDS: DONEPEZIL HCL 5 MG TAB PO SCH (20:40)
[2017-08-07] VITALS (8 sets, daily range): BP systolic 118–161; BP diastolic 68–109; PULSE 67–81; RESP 18–19; TEMP 96.7–98.7; O2SAT 94–97
--- NOTE | 2017-08-07 00:28 | HHI.NSPN ---
History Chief Complaint: No complaints. Interval History The patient was seen for examination on 08/06/2017 by the undersigned This is a delayed note For 08/06/2017 Visit 08/06/2017: The patient has felt better today. She has been ambulating a little better with physical therapy, less assistance. She states she has only mild headache. No nausea. No dizziness or vertigo She has been tolerating diet Exam Results Vital Signs Date Time Temp Pulse Resp B/P (MAP) Pulse Ox O2 Delivery O2 Flow Rate FiO2 08/06/17 20:45 97.8 79 18 170/79 (109) 99 08/04/17 14:20 Room Air Physical Examination Respirations regular Cardiac-regular rhythm Abdomen soft nontender Extremities: No significant edema Neurologic: Awake and alert Conversant appropriate Mild slowing of speech and thought processes Mild difficulty with recent and remote memory Moves all extremities well to command Cranial nerves II through XII tested and intact Lab, Micro, Other Results Laboratory Tests Test 08/06/17 06:57 Phenytoin (Dilantin) Level 12.9 MCG/ML Medical Decision Making Impression and Plan Impression: 1. Stable neurologic exam. Gait is improving today on 08/06/2017 2. Alzheimer's dementia. Probable seizure. Plan: Findings discussed with the patient on 08/06/2017 She seems to be improving somewhat Anticipate discharge home 08/07/2017. Physical therapy notes indicate need for 24 /7 care at this point. She may need a short course of inpatient rehabilitation or fci. Mckay Law MD Aug 07, 2017 00:28
[2017-08-07] MEDS: SODIUM CHLOR 0.9% 1000 ML INJ 1,000 ML IV SCH ×2 (02:45→13:30)
[2017-08-07] MEDS: PHENYTOIN SODIUM 100 MG CAP PO SCH ×3 (06:07→21:11)
[2017-08-07] MEDS: SULFAMETHOXAZOLE-TRIMETHOPRIM DS 800-160 MG TAB PO SCH (08:24)
[2017-08-07] MEDS: ESCITALOPRAM OXALATE 10 MG TAB PO SCH (08:24)
[2017-08-07] MEDS: PRAVASTATIN SOD 40 MG TAB PO SCH (08:24)
[2017-08-07] MEDS: HYDROCHLOROTHIAZIDE 25 MG TAB PO SCH (08:24)
[2017-08-07] MEDS: FOLIC ACID 1 MG TAB PO SCH (08:24)
--- NOTE | 2017-08-07 15:02 | HHI.NSPN ---
(Gideon Reddy) History Chief Complaint: "I'm all tangled up!" (Danny Reddygrazyna HARTMAN) Interval History 08/04: 81-year-old female transferred to [facility] emergency room From [facility] where she presented after a unwitnessed fall and new onset seizure activity. The patient's daughter accompanies her in the emergency room. She states that the patient lives with her at home. Ms. Yeager does have a history of Alzheimer's dementia diagnosed within the past year and followed by neurology. Her daughter states that in the past month, she has noted significant progression of the patient's mental status changes. 2 weeks ago the patient was taken to [facility] after she became much more confused, could not walk. She has improved somewhat since then, ambulating independent over the past week. However last evening her daughter heard a "thump" and went to the next room to find her mother lying on the floor. Within a few seconds she noted diffuse seizure shaking, some foaming at the mouth, followed by a period of lethargy and confusion. She was taken initially to [facility] Emergency room where a CT scan revealed possible mild subarachnoid hemorrhage. A CT angiogram was performed, reported negative for aneurysm. The patient presently has no complaint of significant headache, dizziness. No neck or back pain. 08/05: The patient is asleep when seen but does awaken to voice. She is drowsy but does interact. She denies any headache, dizziness or visual problems. She denies any pain, numbness or tingling to the extremities or any back or neck pain. She is disoriented as to time and place. No evident sensorimotor deficits noted upon examination. The patient did have her MRI/MRI brain/head earlier which were unremarkable. 08/06/2017: The patient has felt better today. She has been ambulating a little better with physical therapy, less assistance. She states she has only mild headache. No nausea. No dizziness or vertigo. She has been tolerating diet. 08/07: When seen this afternoon the patient is attempting to get up from the bed by herself. When asked how she is doing she replied "I don't know. I'm all tangled up!" Then she held up the telemetry monitoring wires. She denies any headache, dizziness or nausea or any pain, numbness, tingling or weakness to the extremities. Upon examination she was oriented to self and being in the hospital but not time. No sensorimotor deficits were noted. (Gideon Reddy) Exam Results 08/05/17 08/05/17 08/06/17 08/06/17 08/07/17 08/07/17 06:00 18:00 06:00 18:00 06:00 18:00 Intake Total 600 ml Balance 600 ml Intake Oral 600 ml # Voids 5 4 2 4 2 # Bowel Movements 3 1 Vital Signs Date Time Temp Pulse Resp B/P (MAP) Pulse Ox O2 Delivery O2 Flow Rate FiO2 08/07/17 12:00 98.6 71 18 146/109 (121) 95 08/07/17 09:02 73 08/07/17 08:00 96.7 69 18 146/78 (100) 97 08/07/17 05:05 98.7 72 18 161/81 (107) 97 08/07/17 00:27 98.7 67 18 150/78 (102) 94 08/06/17 20:45 97.8 79 18 170/79 (109) 99 08/06/17 20:34 74 08/06/17 16:02 98.5 72 20 166/81 (109) 95 160/70 (100) 08/06/17 12:10 73 08/06/17 11:11 98.7 67 20 134/68 (90) 96 08/06/17 08:39 63 08/06/17 08:34 98.3 64 20 161/77 (105) 96 155/72 (99) 08/06/17 04:00 97.6 65 18 149/73 (98) 97 08/06/17 00:00 98.0 67 18 150/70 (96) 96 08/05/17 20:00 98.0 75 18 156/75 (102) 100 08/05/17 16:43 62 08/05/17 16:32 98.5 68 19 153/72 (99) 96 08/05/17 11:46 97.2 60 20 124/62 (82) 96 08/05/17 08:50 66 08/05/17 07:47 98.2 71 20 181/87 (118) 97 08/05/17 06:01 98.0 62 20 156/70 (98) 96 08/05/17 01:43 97.4 66 19 110/55 (73) 95 08/04/17 22:00 69 12 113/64 (80) 95 08/04/17 21:56 98.4 64 19 131/62 (85) 95 08/04/17 16:00 98.1 59 18 179/77 (111) 94 (Gideon Reddy) Physical Examination GENERAL: Awake & alert, attempting to get out of bed. Readily interacts. Confused and slightly anxious. No apparent distress. HEENT: Normocephalic. Healing right lateral forehead abrasion NTTP. PERRLA 3 mm brisk, EOMI. MMM & pink, tongue midline to protrusion. NECK: Supple, no JVD, trachea midline. RESPIRATORY: Slight expiratory wheeze, equal excursion, nonlaboured, on RA. CARDIOVASCULAR: S1S2 w/RRR w/o M/G/R, cap refill < 2 sec, no pedal edema. GASTROINTESTINAL: Abdomen soft, nontender, positive bowel sounds. MUSCULOSKELETAL: BLOOM spontaneously & purposefully w/o difficulty. Extremities NTTP. NEUROLOGICAL: Awake & alert, oriented to person, being in hospital, president but not time. Speech clear & appropriate. Confused as to situation. Speech & thought processes slow. CN II through XII grossly intact. PERRLA 3 mm brisk, EOMI. Tongue midline to protrusion. Sensation intact to light touch to all extremities. Motor strength normal to all major flexion & extension muscle groups of the extremities. (Gideon Reddy) Lab, Micro, Other Results Recent Impressions Head Magnetic Resonance Angiography 08/05/17 0000 Signed Impressions: Service Date/Time: Saturday, August 05, 2017 12:04 - CONCLUSION: 1. Slightly limited by motion artifact. 2. No acute abnormality. Desmond Osborn Jr., MD Brain MRI 08/05/17 0000 Signed Impressions: Service Date/Time: Saturday, August 05, 2017 12:04 - CONCLUSION: 1. No acute intracranial abnormality. 2. Atrophy. 3. Mild chronic small vessel ischemic change. Desmond Osborn Jr., MD Laboratory Tests Test 08/05/17 06:00 08/06/17 06:57 08/07/17 05:36 Phenytoin (Dilantin) Level 15.3 MCG/ML 12.9 MCG/ML 13.1 MCG/ML (Gideon Reddy) Medical Decision Making Impression and Plan Impression: 1. New onset seizure in patient with history of Alzheimer's disease. 2. Follow-up CT scan head negative. No definite indication of spontaneous or traumatic hemorrhage. Patient is doing well and remains neurologically intact for self. Intermittent hypertension. Urine culture positive for Klebsiella pneumoniae and was treated with trimethoprim/sulfamethoxazole 800/160 mg to which it was sensitive. CT brain was unremarkable for any intracranial abnormality. EEG w/o evidence for any focal or diffuse abnormality. MRI/MRA brain/head w/o any acute intracranial abnormality. Atrophy and mild chronic small vessel ischemic changes. Plan: Neuro checks. Stat CT brain for any decline in neuro status. Neurology following. Antiepileptics per Neurology. Diet as tolerated. Mobilise patient w/assistance. Physical Therapy eval & tx. Continue present medications except for antiplatelet agents. Will discharge patient to [facility]. (Gideon Reddy) Attending Statement The exam, history, and the medical decision-making described in the above note were completed with the assistance of the mid-level provider. I reviewed and agree with the findings presented. I attest that I had a [id number] encounter with the patient on the same day, and personally performed and documented my assessment and findings in the medical record. Examination of 08/07/2017, the patient is awake and relatively alert She exhibits mild agitation and moderate confusion. Her speech is soft, somewhat slow, relatively cleared without significant dysarthria. She digits quite a bit with objects in her bed. She responds to some simple questions but mostly with inaccurate and inappropriate responses. She indicates that she has no headache or dizziness. She does indicate that she is hungry. Denies any significant pain. She moves all extremities with good strength. Indicates intact sensation all extremities to light touch Extraocular movements are intact. Facial movements symmetric. She is stable from a neurosurgical standpoint for discharge to custodial. Discharge orders completed. Discharge pending to custodial. (Mckay Law MD) Gideon Reddy Aug 07, 2017 15:02 Mckay Law MD Aug 07, 2017 19:28
[2017-08-07] MEDS ORDERED: DILA100C PO (16:17)
[2017-08-07] MEDS ORDERED: FOLI1TAB6 PO (16:17)
[2017-08-07] MEDS ORDERED: ARIC5TAB6 PO (16:17)
[2017-08-07] MEDS ORDERED: ESCI10TA PO (16:17)
[2017-08-07] MEDS ORDERED: HYDR25TA5 PO (16:17)
[2017-08-07] MEDS ORDERED: SERO25TA PO (16:17)
[2017-08-07] MEDS ORDERED: PRAV40TA PO (16:17)
--- NOTE | 2017-08-07 16:25 | HHI.DCPOC ---
Discharge Care Plan Diagnosis: (1) Subarachnoid hemorrhage (2) Seizure (3) Dementia in Alzheimer's disease (4) Forehead abrasion Your Health Problems Are: Anxiety Exercise Tolerance Difficulty with Speech Additional Problems Confusion Dementia Seizure Goals to Promote Your Health * To prevent worsening of your condition and complications * To maintain your health at the optimal level Follow up with Neurosurgery in 2 weeks. When calling to make your follow up appointment you will need to have an order placed for a CT brain to be completed prior to your office visit. Follow up with Neurology as directed by them. Take your seizure medication as directed. Avoid taking any products that contain aspirin or NSAIDs at this time. Depending upon your CT scan you may be able to resume this type of medication. Directions to Meet Your Goals Take your medications as prescribed Follow your dietary instruction Follow activity as directed Follow up with Neurosurgery in 2 weeks. When calling to make your follow up appointment you will need to have an order placed for a CT brain to be completed prior to your office visit. Follow up with Neurology as directed by them. Take your seizure medication as directed. Avoid taking any products that contain aspirin or NSAIDs at this time. Depending upon your CT scan you may be able to resume this type of medication. Keep your appointments as scheduled Take your immunizations and boosters as scheduled If your symptoms worsen call your PCP, if no PCP go to Urgent Care Center or Emergency Room Smoking is Dangerous to Your Health. Avoid second hand smoke Call the 24-hour hour crisis hotline for domestic abuse at Gideon Reddy Aug 07, 2017 16:25 Mckay Law MD Aug 07, 2017 19:29
--- NOTE | 2017-08-07 16:29 | HHI.DS ---
Gideon Reddy DEVAN 08/07/17 1629: Discharge Summary Admission Date Aug 04, 2017 at 03:06 Discharge Date: Aug 07, 2017 Admitting Diagnosis Subarachnoid hemorrhage (1) Subarachnoid hemorrhage Diagnosis: Principal ICD Code: I60.9 - Nontraumatic subarachnoid hemorrhage, unspecified Status: Acute (2) Seizure Diagnosis: Secondary ICD Code: R56.9 - Unspecified convulsions Status: Acute (3) Forehead abrasion Diagnosis: Secondary ICD Code: S00.81XA - Abrasion of other part of head, initial encounter Status: Acute (4) Dementia in Alzheimer's disease Diagnosis: Secondary ICD Code: G30.9 - Alzheimer's disease, unspecified; F02.80 - Dementia in other diseases classified elsewhere without behavioral disturbance Status: Chronic Brief History 81-year-old female transferred to [facility] emergency room From [facility] where she presented after a unwitnessed fall and new onset seizure activity. The patient's daughter accompanies her in the emergency room. She states that the patient lives with her at home. Ms. Yeager does have a history of Alzheimer's dementia diagnosed within the past year and followed by neurology. Her daughter states that in the past month, she has noted significant progression of the patient's mental status changes. 2 weeks ago the patient was taken to [facility] after she became much more confused, could not walk. She has improved somewhat since then, ambulating independent over the past week. However last evening her daughter heard a "thump" and went to the next room to find her mother lying on the floor. Within a few seconds she noted diffuse seizure shaking, some foaming at the mouth, followed by a period of lethargy and confusion. She was taken initially to [facility] Emergency room where a CT scan revealed possible mild subarachnoid hemorrhage. The patient presently has no complaint of significant headache, dizziness. No neck or back pain. CBC/BMP: 08/04/17 0320 08/04/17 0320 Significant Findings Laboratory Tests Test 08/05/17 06:00 08/06/17 06:57 08/07/17 05:36 Hospital Course 08/04: 81-year-old female transferred to [facility] emergency room From [facility] where she presented after a unwitnessed fall and new onset seizure activity. The patient's daughter accompanies her in the emergency room. She states that the patient lives with her at home. Ms. Yeager does have a history of Alzheimer's dementia diagnosed within the past year and followed by neurology. Her daughter states that in the past month, she has noted significant progression of the patient's mental status changes. 2 weeks ago the patient was taken to [facility] after she became much more confused, could not walk. She has improved somewhat since then, ambulating independent over the past week. However last evening her daughter heard a "thump" and went to the next room to find her mother lying on the floor. Within a few seconds she noted diffuse seizure shaking, some foaming at the mouth, followed by a period of lethargy and confusion. She was taken initially to [facility] Emergency room where a CT scan revealed possible mild subarachnoid hemorrhage. A CT angiogram was performed, reported negative for aneurysm. The patient presently has no complaint of significant headache, dizziness. No neck or back pain. 08/05: The patient is asleep when seen but does awaken to voice. She is drowsy but does interact. She denies any headache, dizziness or visual problems. She denies any pain, numbness or tingling to the extremities or any back or neck pain. She is disoriented as to time and place. No evident sensorimotor deficits noted upon examination. The patient did have her MRI/MRI brain/head earlier which were unremarkable. 08/06/2017: The patient has felt better today. She has been ambulating a little better with physical therapy, less assistance. She states she has only mild headache. No nausea. No dizziness or vertigo. She has been tolerating diet. 08/07: When seen this afternoon the patient is attempting to get up from the bed by herself. When asked how she is doing she replied "I don't know. I'm all tangled up!" Then she held up the telemetry monitoring wires. She denies any headache, dizziness or nausea or any pain, numbness, tingling or weakness to the extremities. Upon examination she was oriented to self and being in the hospital but not time. No sensorimotor deficits were noted. The patient was accepted at [facility] for further nursing care and therapy and therefore discharged from [facility]. Pt Condition on Discharge: Good Discharge Disposition: Discharge to SNF Discharge Instructions DIET: Follow Instructions for: As Tolerated, No Restrictions ACTIVITIES You can perform: Weight Bearing As Madhu, Shower/Bath Activities to Avoid: Lifting/Bending, Strenuous Activity Additional Information Follow up with Neurosurgery in 2 weeks. When calling to make your follow up appointment you will need to have an order placed for a CT brain to be completed prior to your office visit. Follow up with Neurology as directed by them. Take your seizure medication as directed. Avoid taking any products that contain aspirin or NSAIDs at this time. Depending upon your CT scan you may be able to resume this type of medication. Mckay Law MD 08/07/17 192: Discharge Summary CBC/BMP: 08/04/1731908/04/17319 Gideon ReddyP Aug 07, 2017 16:29 Mckay Law MD Aug 07, 2017 19:29
[2017-08-07] MEDS: QUEtiapine FUMARATE 25 MG TAB PO PRN (21:10)
[2017-08-07] MEDS: DONEPEZIL HCL 5 MG TAB PO SCH (21:10)
[2017-08-08] MEDS: SODIUM CHLOR 0.9% 1000 ML INJ 1,000 ML IV SCH (02:16)
[2017-08-08 04:43] VITALS: BP 146/69; PULSE 66; RESP 18; TEMP 98.1; O2SAT 97
[2017-08-08] MEDS: PHENYTOIN SODIUM 100 MG CAP PO SCH (06:21)
[2017-08-08 08:00] VITALS: BP 175/80; PULSE 69; RESP 16; TEMP 97.5; O2SAT 97
[2017-08-08] MEDS: FOLIC ACID 1 MG TAB PO SCH (08:51)
[2017-08-08] MEDS: ESCITALOPRAM OXALATE 10 MG TAB PO SCH (08:51)
[2017-08-08] MEDS: HYDROCHLOROTHIAZIDE 25 MG TAB PO SCH (08:51)
[2017-08-08] MEDS: PRAVASTATIN SOD 40 MG TAB PO SCH (08:51)
== END 2017-08-08 12:33 | DRG 101 ==
LOC: NEPC 02:39 → NEDA 03:06 → N05A 14:50
PROVIDERS: ADMIT Neurological Surgery; ATTEND Neurological Surgery
DX: R56.9 Unspecified convulsions (principal); N39.0 Urinary tract infection, site not specified; G30.9 Alzheimer's disease, unspecified; F02.80 Dementia in other diseases classified elsewhere, unspecified severity, without behavioral disturbance, psychotic disturbance, mood disturbance, and anxiety; I10 Essential (primary) hypertension; S00.81XA Abrasion of other part of head, initial encounter; B96.1 Klebsiella pneumoniae [K. pneumoniae] as the cause of diseases classified elsewhere; E89.0 Postprocedural hypothyroidism; W06.XXXA Fall from bed, initial encounter; Z85.850 Personal history of malignant neoplasm of thyroid; Z87.891 Personal history of nicotine dependence; Z86.73 Personal history of transient ischemic attack (TIA), and cerebral infarction without residual deficits; Z91.81 History of falling
CPT/HCPCS: 70450; 70544; 70551; 71045; 80053; 80185; 81001; 85025; 85610; 85730; 87077; 87086; 87186; 95819; 99285; J7030; Q2009